=== PATIENT | male | born 1980 | race Hispanic/Latino ===

== ENCOUNTER 2018-10-11 18:29 | Emergency (ER) | payer OTHER ==
[2018-10-11 18:42] VITALS: BP 146/92
[2018-10-11] MEDS ORDERED: BENADRYL IV ONE (18:42)
[2018-10-11] MEDS ORDERED: TORADOL IV ONE (18:43)
[2018-10-11] MEDS ORDERED: DILAUDID IV ONE (18:43)
[2018-10-11] MEDS ORDERED: ZOFRAN IV ONE (18:43)
[2018-10-11] MEDS ORDERED: NACL 0.9% 1000 ML 1,000 ML IV ONE (19:28)
[2018-10-11] MEDS ORDERED: DILAUDID IV STA (19:43)
[2018-10-11 19:58] LABS: Hematocrit 45.1 % (35.5-45.6); Hemoglobin 15.5 gm/dl (11.8-15.2); Mean Corpuscular HGB Conc 34 % (32-34); Mean Corpuscular Volume 85 fl (84-94); Platelet Count 149 K/mm3 (140-440); Red Blood Count 5.32 M/mm3 (3.65-5.03); Red Cell Distribution Width 14.3 % (13.2-15.2)
[2018-10-11 20:05] LABS: Bilirubin,Urine NEG (Negative); Blood,Urine LG (Negative); Color,Urine Yellow (Yellow); Mucus,Urine 1+ /HPF; Urobilinogen,Urine < 2.0 mg/dL (<2.0)
[2018-10-11 20:07] LABS: RBC,Urine > 182.0 /HPF (0.0-6.0)
[2018-10-11 20:14] LABS: Albumin 4.7 g/dL (3.9-5); BUN/Creatinine Ratio 18; Blood Urea Nitrogen 16 mg/dL (9-20); Calcium 10.1 mg/dL (8.4-10.2); Hemolysis Index 274
[2018-10-11] MEDS ORDERED: TORADOL IV STA (20:22)
[2018-10-11 20:32] LABS: Alanine Aminotransferase 30 units/L (7-56)
--- NOTE | 2018-10-11 20:34 | Cat Scan Report ---
FINAL REPORT PROCEDURE: CT ABDOMEN PELVIS WO CON TECHNIQUE: Computerized axial tomography of the abdomen and pelvis was performed without intravenous contrast. This study is performed without intravascular contrast material and its sensitivity for ab dominal and pelvic pathology, including neoplasms, inflammation, abscess, free fluid, thrombosis, art erial dissection and infarction, is reduced compared with a contrast enhanced study. HISTORY: left flank pain COMPARISON: No prior studies are available for comparison. FINDINGS: There is mild degree splenomegaly. Surgical clips are identified along the anterior aspect of left lo be liver most likely representing partial hepatectomy. Pancreas, bilateral adrenal glands and right k idney or unremarkable. 4 millimeter obstructive calculus is noted in the distal left ureter at the le sona of vesicoureteral junction with mild degree left hydronephrosis and hydroureter. Additional 2-4 m illimeter non obstructive calculi are noted in the left kidney. Urinary bladder is empty. There is no free fluid or free air. Gallbladder is unremarkable. Aorta is of normal caliber. Small bowel loops a re within normal limits. There is evidence of right colectomy. Vertebral height is normal. IMPRESSION: 4 millimeter obstructive calculus at the left vesicoureteral junction with mild degree left hydroneph rosis and hydroureter. Additional small nonobstructive left renal calculi Mild splenomegaly.
--- NOTE | 2018-10-11 21:12 | Emergency Department Report ---
ED Abdominal Pain HPI - General Chief Complaint: Abdominal Pain Stated Complaint: KIDNEY STONE Time Seen by Provider: 10/11/18 19:03 Source: patient Mode of arrival: Ambulatory Limitations: No Limitations - History of Present Illness Initial Comments: 37-year-old male with past medical history of: Cancer with resection a few years ago, presents emergency department complaining of left flank pain secondary to a kidney stone. His serial CT scans checks for colon cancer, they noted he had a kidney stone on the left side which is around the kidney. It would come down at some point which was about just over a year ago. Pain started earlier today in the sharp, throbbing, dull fashion and continue to worsen throughout the day associated wit h nausea and a few episodes of vomiting. Reports having a couple episodes of bloody urine as well. Denies any trauma. Reports no fever, chills, sweats, chest pain, palpitations. MD Complaint: flank pain -: Sudden Location: L flank Radiation: suprapubic Migration to: no migration Severity: mild Severity scale (0 -10): 5 Quality: sharp Consistency: constant Improves With: nothing Worsens With: nothing Associated Symptoms: denies: vomiting, diarrhea, fever, constipation, dysuria, hematochezia, hematuria, syncope - Related Data Previous Rx's Medication Instructions Recorded Last Taken Type Ciprofloxacin HCl [Cipro] 500 mg PO BID #20 tablet 10/11/18 Unknown Rx Oxycodone HCl/Acetaminophen 1 each PO Q6HR PRN #14 tablet 10/11/18 Unknown Rx [Percocet 10/325 mg] Tamsulosin [Flomax] 0.4 mg PO QDAY #14 cap 10/11/18 Unknown Rx Allergies Allergy/AdvReac Type Severity Reaction Status Date / Time terbinafine [From Lamisil] Allergy Rash Verified 10/11/18 18:38 ED Review of Systems ROS: Stated complaint: KIDNEY STONE Other details as noted in HPI Constitutional: denies: chills, fever Eyes: denies: eye pain, eye discharge, vision change ENT: denies: ear pain, throat pain Respiratory: denies: cough, shortness of breath, wheezing Cardiovascular: denies: chest pain, palpitations Endocrine: no symptoms reported Gastrointestinal: denies: abdominal pain, nausea, diarrhea Genitourinary: denies: urgency, dysuria Musculoskeletal: denies: back pain, joint swelling, arthralgia Skin: denies: rash, lesions Neurological: denies: headache, weakness, paresthesias Psychiatric: denies: anxiety, depression Hematological/Lymphatic: denies: easy bleeding, easy bruising ED Past Medical Hx - Past Medical History Previous Medical History?: Yes Hx of Cancer: Yes (colon cancer) Hx Kidney Stones: Yes - Surgical History Past Surgical History?: Yes Additional Surgical History: 1/3 of colon removed. liver resection - Social History Smoking Status: Never Smoker Substance Use Type: None - Medications Home Medications: Home Medications Medication Instructions Recorded Confirmed Last Taken Type Ciprofloxacin HCl [Cipro] 500 mg PO BID #20 tablet 10/11/18 Unknown Rx Oxycodone HCl/Acetaminophen 1 each PO Q6HR PRN #14 tablet 10/11/18 Unknown Rx [Percocet 10/325 mg] Tamsulosin [Flomax] 0.4 mg PO QDAY #14 cap 10/11/18 Unknown Rx ED Physical Exam - General Limitations: No Limitations General appearance: alert, in no apparent distress - Head Head exam: Present: atraumatic, normocephalic - Eye Eye exam: Present: normal appearance, PERRL, EOMI - ENT ENT exam: Present: mucous membranes moist - Neck Neck exam: Present: normal inspection, full ROM - Respiratory Respiratory exam: Present: normal lung sounds bilaterally. Absent: respiratory distress, wheezes, rales, rhonchi, chest wall tenderness - Cardiovascular Cardiovascular Exam: Present: regular rate, normal rhythm. Absent: systolic murmur, diastolic murmur, rubs, gallop - GI/Abdominal GI/Abdominal exam: Present: soft, normal bowel sounds - Rectal Rectal exam: Present: deferred - Extremities Exam Extremities exam: Present: normal inspection, full ROM, normal capillary refill - Back Exam Back exam: Present: normal inspection, full ROM, CVA tenderness (L). Absent: CVA tenderness (R), muscle spasm, paraspinal tenderness - Neurological Exam Neurological exam: Present: alert, oriented X3, CN II-XII intact, normal gait. Absent: abnormal gait - Psychiatric Psychiatric exam: Present: normal affect, normal mood. Absent: anxious, flat affect, manic - Skin Skin exam: Present: warm, dry, intact, normal color. Absent: rash, diaphoretic, erythema, petechiae, pallor, abrasion ED Course Vital Signs 10/11/18 18:38 Temperature 97.5 F L Pulse Rate 78 Respiratory 20 Rate Blood Pressure 146/92 O2 Sat by Pulse 100 Oximetry ED Medical Decision Making - Lab Data Result diagrams: 10/11/18 19:39 10/11/18 19:39 - Radiology Data Radiology results: report reviewed 4 mm ureteral calculus with mild hydro- - Medical Decision Making But patient needed follow up with the urologist yadira for definitive management and strain his urine as well as continue to hydrate to incorporate passing of his renal stone. Critical care attestation.: If time is entered above; I have spent that time in minutes in the direct care of this critically ill patient, excluding procedure time. ED Disposition Clinical Impression: Ureteral calculi Disposition: - TO HOME OR SELFCARE Is pt being admited?: No Does the pt Need Aspirin: No Condition: Stable Instructions: Kidney Stones (ED), How to Strain Your Urine (ED) Prescriptions: Ciprofloxacin HCl [Cipro] 500 mg PO BID #20 tablet Oxycodone HCl/Acetaminophen [Percocet 10/325 mg] 1 each PO Q6HR PRN #14 tablet PRN Reason: Pain Tamsulosin [Flomax] 0.4 mg PO QDAY #14 cap Referrals: KANE SPARKS DO [Primary Care Provider] - 3-5 Days [facility] [Provider Group] - 3-5 Days
[2018-10-11] MEDS ORDERED: LEVAQUIN PO ONE (21:34)
== END 2018-10-11 21:48 | disposition home or self-care (01) ==
LOC: ED 18:29
DX: N20.1 Calculus of ureter (principal); Z85.038 Personal history of other malignant neoplasm of large intestine; Z87.442 Personal history of urinary calculi; Z88.1 Allergy status to other antibiotic agents
CPT/HCPCS: 36415; 74176; 80053; 81001; 85027; 96361; 96374; 96375; 96376; 99284; J1170; J1200; J1885; J2405; J7030